=== PATIENT | male | born 2000 | race Caucasian/White ===

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

== ENCOUNTER 2022-05-25 13:52 | Emergency (ER) | payer MEDICAID, SELFPAY ==
[2022-05-25 14:07] VITALS: BP 137/74; PULSE 64; RESP 16; TEMP 36.7; O2SAT 99
--- NOTE | 2022-05-25 14:30 | W.ED.GENAD ---
Discharge Plan Disposition Patient Disposition: HOME Condition: Stable Discharge Details Clinical Impression: Pain, dental Primary Care Provider: Tracy,Local ED Provider: Camila Perdomo Home Meds and New Rx's Prescriptions: New penicillin V potassium 500 mg tablet 500 mg PO Q6H 10 Days Qty: 40 0RF Discharge Instructions Instructions: Toothache (ED) Additional Instructions: soft diet motrin/tylenol for pain antibiotic as precribed yogurt daily while on antibiotics return earlier with new or worsening complaints Referrals: Gary Bradley [ [facility] STAFF PHYSICIAN] - Discharge Data Discharge Date/Time-TO BE ENTERED AT DEPARTURE: 05/25/22 14:41 Medical Decision Making Referral to dentist Placed on antibiotic Ibuprofen and Tylenol for pain control No evidence of Ludwigs angina return precautions discussed and pt expressed understanding Medical Records Medical records reviewed: Yes I reviewed the patient's medical records. Lab Data Lab results reviewed: Yes I reviewed the patient's lab results. HPI General Date/Time Provider Initiated Documentation: 05/25/22 14:12. HPI Narrative: Otherwise healthy presents with this 21-year-old male who is otherwise healthy presents with right upper dental pain for the past several months. He states he fractured it several months ago. He denies any fever or chills. He states it is exacerbated with chewing. He states it radiates into his ear. He denies any drainage. Patient states he presents today secondary to his partner delivering upstairs with him being concerned about his health. He denies any difficulty swallowing or chest discomfort. Denies any headaches. He has not been on an antibiotic Related Data Home Medications Medication Instructions Recorded Confirmed penicillin V potassium 500 mg 500 mg PO Q6H 10 days #40 tabs 05/25/22 tablet Previous Rx's Medication Instructions Recorded penicillin V potassium 500 mg 500 mg PO Q6H 10 days #40 tabs 05/25/22 tablet Allergies Allergy/AdvReac Type Severity Reaction Status Date / Time No Known Allergies Allergy Unverified 05/25/22 14:10 General Stated Complaint: DentalOral PAPITO: 3 Review of Systems Narrative: Review of systems obtained x3 and negative aside from indication in the HPI PFSH All Active Problems (Updated 05/25/22 @ 14:35 by JESÚS Tan) Pain, dental (Acute) Social History Smoking/Tobacco Use Status: Current every day Tobacco Type: cigarettes Smoking risk assessment performed?: Yes Alcohol Intake: former Drug use: Daily Substance use type: marijuana Do you feel safe at home: Yes Do you feel safe in your relationship?: Yes Exam Const General: cooperative, comfortable and no acute distress [facility] Teeth image: 1. Fracture to, no evidence of deep space infection, no trismus No soft palate induration or evidence of Bharat's angina Course Vital Signs Vital signs: Vital Signs Temperature 36.7 C 05/25/22 14:07 Pulse 64 05/25/22 14:07 Respiratory Rate 16 05/25/22 14:07 Blood Pressure 137/74 05/25/22 14:07 Pulse Oximetry 99 05/25/22 14:07 Temperature 36.7 C 05/25/22 14:07 Temperature Source Temporal Artery Scan 05/25/22 14:07 Pulse 64 05/25/22 14:07 Respiratory Rate 16 05/25/22 14:07 Respiratory Effort 05/25/22 14:07 Blood Pressure 137/74 05/25/22 14:07 Blood Pressure Position Sitting 05/25/22 14:07 Pulse Oximetry 99 05/25/22 14:07 Oxygen Delivery Method Room Air 05/25/22 14:07 Oxygen Flow Rate 0 05/25/22 14:07 Pain Level 7 05/25/22 14:11
--- NOTE | 2022-05-25 17:16 | NUR.NOTE ---
Referral made per Camila ely to establish care with a PCP when avail as the patient just moved back to the area. Put the referral in the day care center director's box for assistance. Nursing Note:
--- NOTE | 2022-05-26 10:39 | CMACTNOTE_ITS ---
- If Service Date Differs Date of service: 05/26/22 Time of Service: 10:39 Care Management Activity Note Everett is seen in the ED for dental pain. ED provider asks that CM assist Everett in establishing care with a local PCP. A review of his chart reveals that Gary Bradley MD is listed as his PCP. A phone call to the [place] office of [facility] reveals that Everett is no longer an active patient at their health center as he transferred his care out of the area in 2019. CM tele phones Everett to inquire if he would rather reestablish at [facility] or the [facility]. Per Everett's request, KELLY coordinates a referral to Caroline Iqbal MD, of [facility], on-call provider, to assist Everett in establishing care. KELLY also advises Everett that [facility] is currently accepting new patients and directs him to call them to obtain new patient paperwork. Everett has [place] Medicaid for insurance.
== END 2022-05-25 14:41 | disposition home or self-care (01) ==
PROVIDERS: Emergency Provider Physician Assistant
DX: K08.89 Other specified disorders of teeth and supporting structures (principal); F17.210 Nicotine dependence, cigarettes, uncomplicated
CPT/HCPCS: 99283

== ENCOUNTER 2022-08-04 20:04 | Outpatient (REF) | payer MEDICAID, SELFPAY ==
[2022-08-04 15:37] LABS: HCT 45.2 % (40.0-50.0); HGB 15.3 g/dL (13.5-17.5); MCH 31.8 pg (27.0-33.0); MCHC 33.8 % (32.0-36.0); MCV 94 fL (80-95); MPV 11.1 fL (8.0-11.0); Platelet Count 214 10^3/uL (130-400); RBC 4.81 10^6/uL (4.36-5.78); RDW 11.9 % (11.8-14.1); RDW-SD 41.1 fL; WBC 7.94 10^3/uL (4.4-10.8)
[2022-08-04 15:58] LABS: FREE T4 1.22 ng/dL (0.76-1.46); TSH 1.43 uIU/mL (0.36-3.74)
[2022-08-05 05:19] LABS: Vitamin D 25 Total 29.9 ng/mL (30-100)
== END 2022-08-04 20:05 | disposition home or self-care (01) ==
LOC: NCHCN 20:04
PROVIDERS: Visit Provider Nurse Practitioner Family
DX: F41.8 Other specified anxiety disorders (principal)
CPT/HCPCS: 82306; 85027; 84439; 84443

== ENCOUNTER 2022-08-26 18:05 | Emergency (ER) | payer MEDICAID, SELFPAY ==
[2022-08-26 18:09] VITALS: BP 125/71; PULSE 75; RESP 20; TEMP 36.7; O2SAT 99
--- NOTE | 2022-08-26 18:21 | W.ED.GENAD ---
Discharge Plan Disposition Patient Disposition: HOME Condition: Good Discharge Details Clinical Impression: Pain due to dental caries Primary Care Provider: Unknown,Unknown ED Provider: Aron Mcdonnell Discharge Instructions Instructions: Dental Caries (ED) Additional Instructions: At this time there is no evidence of dental abscess or infection. Please continue to monitor symptoms and if you develop significant facial swelling, swelling in your mouth, fever chills, or difficulty breathing or swallowing return immediately to the emergency department for reassessment. Otherwise it is recommended that you take 600 mg of ibuprofen with 650 or thousand of acetaminophen every 6 hours as needed for pain. You may also use [id number] dental oral gel for discomfort as well. Just take as directed on packaging. Otherwise it is very important that you follow-up with dental provider for reassessment and definitive care of your complaints. Referrals: [facility] [Provider Group] Discharge Data Discharge Date/Time-TO BE ENTERED AT DEPARTURE: 08/26/22 18:35 Medical Decision Making Patient presenting to the emergency department for chief complaint of right upper molar dental pain. He states this is been intermittent for a year but constant over the last 2 days. He denies any injury or trauma, fractured tooth, swelling to the face, fever chills, or other symptoms. Exam consistent with dental dipak without infection.. no signs of deep neck space infection ( Retropharyngeal abscess, Jarett's angina, Parapharyngeal space infection, Peritonsillar Abscess ([employer])) or Epiglottitis. Pt non toxic and stable. Do not feel that patient needs antibiotics at this time but will recommend NSAIDs and follow-up with dental. He states that he does have dental appointment scheduled for the . Patient given IM Toradol and discussed [id number] medications he may utilize for pain control while continuing to monitor symptoms. After discussion of diagnosis and plan of care patient has no further needs, questions, or concerns and states clear understanding to return to the emergency department for any worsening symptoms. This documentation was generated using [employer] system, please disregard any oddities of phrase or misspellings. HPI General Mode of arrival: ambulatory. Date/Time Provider Initiated Documentation: 08/26/22 18:13. Limitations to Documentation: no limitations. Information obtained by: patient. History of Present Illness 21 year old M presents to the emergency department with the chief complaint of Dental pain, described as moderate, with intensity rated at 7. Quality is described as sharp, and is localized to the mouth. Patient reports no radiation. Patient started experiencing this day(s) (2) and it has been constant and intermittent (for years). No relieving factors improve symptom(s), No exacerbating factors reported . Patient notes no other symptoms.. Patient did receive the following treatments prior to arrival, NSAID Related Data Allergies Allergy/AdvReac Type Severity Reaction Status Date / Time No Known Allergies Allergy Unverified 05/25/22 14:10 General Stated Complaint: DentalOral PAPITO: 4 Review of Systems Constitutional Constitutional: Denies chills and Denies fever(s) ENT Ears, Nose, Mouth, and Throat: Reports as per HPI, Denies change in voice, Reports dental pain, Denies dysphagia, Denies throat swelling and Denies tongue swelling Cardiovascular Cardiovascular: Denies chest pain and Denies dyspnea Respiratory Respiratory: Denies dyspnea, Denies stridor and Denies wheezing Gastrointestinal Gastrointestinal: Denies abdominal pain, Denies dysphagia, Denies nausea and Denies vomiting Integumentary/Breasts Skin/Breast: Denies rash Allergic/Immunologic Allergic/Immunologic: Denies throat swelling, Denies tongue swelling and Denies wheezing PFSH All Active Problems (Updated 08/26/22 @ 18:27 by Aron Mcdonnell NP) Pain due to dental caries (Acute) Social History Smoking/Tobacco Use Status: Current every day Tobacco Type: cigarettes Smoking risk assessment performed?: Yes Alcohol Intake: former Drug use: Daily Substance use type: marijuana Do you feel safe at home: Yes Do you feel safe in your relationship?: Yes Exam Const General: cooperative Orientation: alert, awake and oriented x3 Limitations: mental status not altered [facility] Head: normal to inspection, normocephalic and atraumatic Ears: hearing grossly normal bilaterally, normal mastoids bilaterally and no periauricular adenopathy General nose exam: external nose normal Face and sinus: normal facial exam Mouth: oropharynx normal, no drooling, no muffled voice, normal tongue and no trismus Teeth and gingiva: caries (Noted to Tooth #2 with tenderness to tooth) Throat: posterior oropharynx normal, tonsils normal and uvula midline Eyes General: appearance normal, both eyes and all related structures Pupils: PERRL Neck Neck: normal visual inspection, full ROM, no lymphadenopathy, no meningeal signs, trachea midline, supple, no anterior neck swelling and no midline deformity Resp Effort & Inspection: normal respiratory effort and able to speak in complete sentences Auscultation: clear to auscultation bilaterally Cardio Rate: regular rate Rhythm: regular rhythm Heart Sounds: S1 normal and S2 normal Course Vital Signs Vital signs: Vital Signs Temperature 36.7 C 08/26/22 18:09 Pulse 75 08/26/22 18:09 Respiratory Rate 20 08/26/22 18:09 Blood Pressure 125/71 08/26/22 18:09 Pulse Oximetry 99 08/26/22 18:09 Temperature 36.7 C 08/26/22 18:09 Temperature Source Skin 08/26/22 18:09 Pulse 75 08/26/22 18:09 Respiratory Rate 20 08/26/22 18:09 Blood Pressure 125/71 08/26/22 18:09 Blood Pressure Position Sitting 08/26/22 18:09 Pulse Oximetry 99 08/26/22 18:09 Oxygen Delivery Method Room Air 08/26/22 18:09 Oxygen Flow Rate 0 08/26/22 18:09
[2022-08-26] MEDS: Ketorolac 30 MG/ML VIAL IM (18:28)
== END 2022-08-26 18:35 | disposition home or self-care (01) ==
PROVIDERS: Emergency Provider Nurse Practitioner Family
DX: K02.9 Dental caries, unspecified (principal); F17.210 Nicotine dependence, cigarettes, uncomplicated
CPT/HCPCS: 96372; 99284; J1885

== ENCOUNTER 2023-06-29 15:08 | Emergency (ER) | payer SELFPAY ==
[2023-06-29 15:14] VITALS: BP 119/75; PULSE 64; RESP 18; TEMP 36.7; O2SAT 99
--- NOTE | 2023-06-29 15:30 | W.ED.GENAD ---
Discharge Plan Disposition Patient Disposition: Home Condition: Good Discharge Details Clinical Impression: Pain, dental Primary Care Provider: Unknown,Unknown ED Provider: Balbir Amaya Home Meds and New Rx's Prescriptions: New penicillin V potassium 500 mg tablet 500 mg PO QID 10 Days Qty: 40 0RF Discharge Instructions Instructions: Toothache (ED) Additional Instructions: The block we administered should help improve your pain. Please take 800 mg of ibuprofen every 6 hours and 1000 mg of Tylenol every 6 hours to help with the inflammation and pain. These are the maximum doses. Please take the antibiotic as directed to help with the infection in your tooth. Please use the dental list that we have provided to contact the dentist for prompt follow-up and evaluation for tooth removal. If you notice any worsening of your symptoms, or any new symptoms such as difficulty swallowing, difficulty breathing, vomiting, diarrhea, fever, chills, shortness of breath, chest pain, numbness, weakness, or fainting , please return immediately to the emergency department for reevaluation. Please follow up with your primary care provider as soon as possible for reassessment and reevaluation. As always, it was a pleasure participating in your medical care today. Medical Decision Making Pleasant 22-year-old male who presents today for dental pain in the right upper molar. He states that he had his molar break off about 1 to 2 months ago, and pain began about 2 days ago. It is notably achy. Slightly improved with Motrin. He denies any numbness or tingling. No difficulty drinking or swallowing. No swelling. No other complaints at this time here. He has not followed up with a dentist yet. Pain is made worse with chewing. M demonstrates fractured right upper posterior molar. No evidence of periapical abscess Jarett's angina or other abnormalities to suggest airway compromise. Will start the patient on penicillin, discussed risks and benefits of dental block. Patient elects for dental block. Block was performed with good success. Patient tolerated well. Will discharge with antibiotics for home use, I have extensively reviewed the treatment plan and discharge instructions with the patient. I have addressed all patient concerns at this time. The patient was made aware of what symptoms to monitor for that would warrant a return to the emergency department. Discussed the plan with the patient, they demonstrate verbal understanding and agreement with our assessment and plan at this time. The documentation in this chart was dictated using [employer] dictation software. Please excuse any dictation errors. HPI General Date/Time Provider Initiated Documentation: 06/29/23 15:16. HPI Narrative: Pleasant 22-year-old male who presents today for dental pain in the right upper molar. He states that he had his molar break off about 1 to 2 months ago, and pain began about 2 days ago. It is notably achy. Slightly improved with Motrin. He denies any numbness or tingling. No difficulty drinking or swallowing. No swelling. No other complaints at this time here. He has not followed up with a dentist yet. Pain is made worse with chewing. Related Data Home Medications Medication Instructions Recorded Confirmed penicillin V potassium 500 mg 500 mg PO QID 10 days #40 tabs 06/29/23 tablet Previous Rx's Medication Instructions Recorded penicillin V potassium 500 mg 500 mg PO QID 10 days #40 tabs 06/29/23 tablet Allergies Allergy/AdvReac Type Severity Reaction Status Date / Time No Known Allergies Allergy Unverified 06/29/23 15:15 General Stated Complaint: DentalOral PAPITO: 4 Review of Systems All systems reviewed & are unremarkable except as noted in HPI and below PFSH All Active Problems (Updated 06/29/23 @ 15:33 by Balbir Amaya DO) Pain, dental (Acute) Social History Smoking/Tobacco Use Status: Current every day Tobacco Type: cigarettes Smoking risk assessment performed?: Yes Alcohol Intake: former Drug use: Daily Substance use type: marijuana Do you feel safe at home: Yes Do you feel safe in your relationship?: Yes Exam Narrative Exam Narrative: 1.Const: Well-nourished, Well-developed, appearing stated age 2.Eyes: PERRL, no conjunctival injection, and symmetrical lids. 3.ENT: Atraumatic external nose and ears. Moist MM. Neck: Symmetric, trachea midline, No thyromegaly. Dental caries throughout. Fractured posterior right upper molar is noted. No periapical abscess. No swelling, no evidence of Jarett's angina. No evidence of airway compromise 4.CVS: +S1/S2, No murmurs or gallops. Peripheral pulses 2+ and equal in all extremities. Brisk capillary refill in all extremities. 5.RESP: Unlabored respiratory effort. Clear to auscultation bilaterally. No wheezes rales or rhonchi 6.GI: Soft, Nontender/Nondistended, No hepatosplenomegaly. No guarding or rebound. 7.MSK: Normocephalic/Atraumatic, Extremities w/o deformity or ttp No cyanosis or clubbing, Normal movement of all extremities 8.Skin: Warm, Dry. No rashes or lesions. 9.Neuro: ict programmer II-XII grossly intact. Sensation grossly intact, no focal neurologic deficits. 10.Psych: (AAO) x3. Appropriate mood and affect Course Vital Signs Vital signs: Vital Signs Temperature 36.7 C 06/29/23 15:14 Pulse 64 06/29/23 15:14 Respiratory Rate 18 06/29/23 15:14 Blood Pressure 119/75 06/29/23 15:14 Pulse Oximetry 99 06/29/23 15:14 Temperature 36.7 C 06/29/23 15:14 Temperature Source Skin 06/29/23 15:14 Pulse 64 06/29/23 15:14 Respiratory Rate 18 06/29/23 15:14 Respiratory Effort Normal, Non-Labored 06/29/23 15:15 Blood Pressure 119/75 06/29/23 15:14 Blood Pressure Position Sitting 06/29/23 15:14 Pulse Oximetry 99 06/29/23 15:14 Oxygen Delivery Method Room Air 06/29/23 15:14 Oxygen Flow Rate 0 06/29/23 15:14 Pain Level 10 06/29/23 15:14 Procedures Nerve Block Nerve Block 1: Time out performed: Yes Local Anesthetic: Bupivicaine 0.25% Amount of anesthesia used (mL): 5 Side: right Intraoral Nerve Block: superior alveolar Procedure Successful: Yes Patient Tolerated Procedure: well and no complications Complications: none PAWSS Have you Been Recently Intoxicated or Drunk Within the Last 30 days?: No Have you Ever Experienced Previous Episodes of Alcohol Withdrawal?: No Have you ever Experienced Withdrawal Seizures?: No Have you ever Experienced Delirium Tremens(DT)s?: No Have you ever undergone Alcohol Rehabilitation Treatment (i.e, inpt ot outpatient treatment programs)?: No Have you ever Experienced Blackouts?: No Have you ever Combined Alcohol with other Downers within the last 90 days?: No Have you ever Combined Alcohol with any other Substance of Abuse during the last 90 days?: No Positive Blood Alcohol level on Presentation? [PCS.BAL]: No Evidence of Increased Autonomic Activity (i.e. HR>120, tremor, sweating, agitation, nausea)?: No Result: 0
[2023-06-29] MEDS: Penicillin V POTASSIUM 500 MG TAB, 4 TABS/BTL PO (15:38)
[2023-06-29 15:39] VITALS: PULSE 85; O2SAT 99
== END 2023-06-29 15:42 | disposition home or self-care (01) ==
PROVIDERS: Emergency Provider Student in an Organized Health Care Education/Training Program
DX: K08.89 Other specified disorders of teeth and supporting structures (principal)
CPT/HCPCS: 64400

== ENCOUNTER 2023-07-18 11:20 | Emergency (ER) | payer SELFPAY ==
[2023-07-18 11:24] VITALS: BP 127/69; PULSE 75; RESP 14; TEMP 36.5; O2SAT 99
--- NOTE | 2023-07-18 11:35 | W.ED.GENAD ---
Discharge Plan Disposition Patient Disposition: Home Discharge Details Clinical Impression: Head injury due to trauma, Cervical muscle strain Primary Care Provider: None,None ED Provider: Aron Mcdonnell Home Meds and New Rx's Prescriptions: New ketorolac 10 mg tablet 10 mg PO TID 5 Days Qty: 15 0RF cyclobenzaprine 5 mg tablet 5 - 10 mg PO TID PRN (Reason: muscle spasm) Qty: 20 0RF Discharge Instructions Instructions: Cervical Strain (ED), Head Injury (ED) Additional Instructions: With the prescribed ketorolac please do not take any further NSAIDs which include Aleve, Advil, Motrin, ibuprofen, or aspirin as this may cause complications or side effects due to interaction. Please use caution with use of the muscle relaxer as this may make you sedated for slightly altered it is not recommended to drive or use machinery or dangerous equipment. You may perform activities as tolerated. feel free to return for new or worsening symptoms otherwise follow-up your primary care provider for recheck if not improving in the next 1 to 2 weeks Stand Alone Forms: Work Release Referrals: Primary Care Provider [Outside] Discharge Data Discharge Date/Time-TO BE ENTERED AT DEPARTURE: 07/18/23 11:48 Medical Decision Making Patient presenting to the emergency department for chief complaint of head injury. Patient reports that he stood up striking his head against a pallet yosvany. He denies any syncope, loss of consciousness, vomiting, focal neurological findings. Patient has felt general malaise, mild nausea on the way he struck his head but has further resolved, and a slight headache since but also having some neck discomfort. Physical exam is unremarkable and shows no signs of acute neurological deficit, no wounds hematoma or ecchymosis noted, mild soft tissue tenderness to the paraspinal tissue of the cervical spine. I do not feel that patient needs advanced imaging. We will treat patient's symptoms conservatively and will have patient follow-up with primary care return for new or worsening symptoms. After discussion of diagnosis and plan of care patient has no further needs, questions, or concerns and states clear understanding to return to the emergency department for any worsening symptoms. This documentation was generated using [employer] system, please disregard any oddities of phrase or misspellings. HPI General Mode of arrival: ambulatory. Date/Time Provider Initiated Documentation: 07/18/23 11:33. Limitations to Documentation: no limitations. Information obtained by: patient and RN notes reviewed. History of Present Illness 22 year old M presents to the emergency department with the chief complaint of Head and neck pain, described as moderate, and is localized to the head and neck. Patient started experiencing this week(s) (1) and it has been constant. Rest improves symptom(s), Movement worsens symptoms . Patient did receive the following treatments prior to arrival, NSAID Related Data Home Medications Medication Instructions Recorded Confirmed cyclobenzaprine 5 mg tablet 5 - 10 mg PO TID PRN muscle spasm 07/18/23 #20 tabs ketorolac 10 mg tablet 10 mg PO TID 5 days #15 tabs 07/18/23 Previous Rx's Medication Instructions Recorded cyclobenzaprine 5 mg tablet 5 - 10 mg PO TID PRN muscle spasm 07/18/23 #20 tabs ketorolac 10 mg tablet 10 mg PO TID 5 days #15 tabs 07/18/23 Allergies Allergy/AdvReac Type Severity Reaction Status Date / Time No Known Allergies Allergy Unverified 07/18/23 11:33 General Stated Complaint: HeadInjury PAPITO: 4 Review of Systems Constitutional Constitutional: Denies chills, Denies fever(s), Reports headache(s), Reports malaise and Denies weakness Eyes Eyes: Denies change in vision and Denies loss of vision ENT Ears, Nose, Mouth, and Throat: Reports headache(s) and Reports neck pain Cardiovascular Cardiovascular: Denies chest pain, Denies syncope and Denies dyspnea Respiratory Respiratory: Denies dyspnea Gastrointestinal Gastrointestinal: Reports nausea and Denies vomiting Musculoskeletal Musculoskeletal: Denies back pain, Denies muscle weakness and Reports neck pain Integumentary/Breasts Skin/Breast: Denies wounds Neurologic Neurologic: Reports as per HPI, Denies syncope, Reports headache(s), Denies lack of coordination, Denies localized weakness, Denies loss of vision, Denies memory loss, Denies seizure-like activity, Denies sensory deficit, Denies paresthesias and Denies weakness Psychiatric Psychiatric: Denies memory loss PFSH All Active Problems Pain, dental (Acute) Head injury due to trauma (Acute) Cervical muscle strain (Acute) Social History Smoking/Tobacco Use Status: Current every day Tobacco Type: cigarettes Smoking risk assessment performed?: Yes Alcohol Intake: former Drug use: Daily Substance use type: marijuana Do you feel safe at home: Yes Do you feel safe in your relationship?: Yes Exam Const General: cooperative, healthy appearing, no acute distress and well groomed Orientation: alert, awake and oriented x3 HENMT Head: normal to inspection Ears: hearing grossly normal bilaterally and TM's normal bilaterally Mouth: oral mucosae normal and moist mucous membranes Throat: posterior oropharynx normal Eyes Visual Tapia: normal visual tapia by confrontation Alignment and Position: alignment normal Periorbital: periorbital findings normal Eyelids: eyelids normal Sclera: sclerae normal Cornea: corneas normal Pupils: PERRL EOM: EOM intact bilaterally Neck Neck: normal visual inspection, full ROM and no meningeal signs Resp Effort & Inspection: normal respiratory effort and able to speak in complete sentences Auscultation: clear to auscultation bilaterally Cardio Rate: regular rate Rhythm: regular rhythm Heart Sounds: S1 normal and S2 normal Back/Spine/Pelvis Cervical Spine: normal cervical lordosis, cervical ROM normal, cervical muscular tenderness, No pain with cervical ROM and No cervical spinal tenderness Neuro General: patient alert, patient awake, patient oriented x3, gait normal, tone normal, moves all extremities, CN's II-XI intact bilaterally and not confused Cognition: normal cognition Speech: speech normal Motor: muscle tone normal throughout, strength 5/5 throughout, no pronator drift, no movement abnormalities noted and no fasciculations Sensory Exam: no sensory deficits noted Coordination: [id number] test normal, Romberg test normal, Does not sway with eyes open, rapid alternating movement UE normal and rapid alternating movement LE normal Course Vital Signs Vital signs: Vital Signs Temperature 36.5 C 07/18/23 11:24 Pulse 75 07/18/23 11:24 Respiratory Rate 14 07/18/23 11:24 Blood Pressure 127/69 07/18/23 11:24 Pulse Oximetry 99 07/18/23 11:24 Temperature 36.5 C 07/18/23 11:24 Temperature Source Skin 07/18/23 11:24 Pulse 75 07/18/23 11:24 Respiratory Rate 14 07/18/23 11:24 Respiratory Effort Normal 07/18/23 11:34 Blood Pressure 127/69 07/18/23 11:24 Blood Pressure Position Sitting 07/18/23 11:24 Pulse Oximetry 99 07/18/23 11:24 Oxygen Delivery Method Room Air 07/18/23 11:24 Oxygen Flow Rate 0 07/18/23 11:24 Pain Level 5 07/18/23 11:24 Comment has been taking ibuprofen without relief 07/18/23 11:24
[2023-07-18] MEDS: Ketorolac 15 MG/ML VIAL IM (11:37)
== END 2023-07-18 11:48 | disposition home or self-care (01) ==
PROVIDERS: Emergency Provider Nurse Practitioner Family
DX: S16.1XXA Strain of muscle, fascia and tendon at neck level, initial encounter (principal); S09.90XA Unspecified injury of head, initial encounter; X58.XXXA Exposure to other specified factors, initial encounter
CPT/HCPCS: 96372; 99284; J1885

== ENCOUNTER 2025-08-22 08:55 | Emergency (ER) | payer SELFPAY ==
[2025-08-22] VITALS (16 sets, daily range): BP systolic 99–129; BP diastolic 53–78; PULSE 54–88; RESP 16–18; TEMP 36.6; O2SAT 98–100
--- NOTE | 2025-08-22 09:00 | DI.CT_ITS ---
Exam(s) CT ABDOMEN PELVIS W EXAM: CT ABDOMEN PELVIS W CLINICAL HISTORY: periumbilical pain. TECHNIQUE: Imaging Protocol: Axial computed tomography images with coronal and sagittal reformatted images were created and reviewed CONTRAST MATERIAL: Intravenous: Omnipaque-350 100cc Oral: None COMPARISON: No exams were available for comparison FINDINGS: VISUALIZED LUNG BASES: No nodules nor pleural effusions evident. ABDOMEN: There is no ascites. LIVER: There are no focal hepatic lesions evident. No dilated intrahepatic ducts. GALLBLADDER/BILIARY: No obvious gallbladder pathology. CBD is not dilated. PANCREAS: No evidence of pancreatic mass nor dilatation of the pancreatic duct. SPLEEN: Spleen is not enlarged. No obvious intrasplenic lesions. Splenic and portal veins are patent. ADRENALS: There are no significant adrenal masses. KIDNEYS:No cysts evident. No solid renal masses. No calculi nor hydronephrosis.. ABDOMINAL AORTA: Abdominal aorta is not enlarged. LYMPH NODES:There is no retroperitoneal nor paraaortic adenopathy. ABDOMINAL WALL: No evidence of significant anterior abdominal wall nor inguinal hernia. GI: There is no evidence of bowel obstruction, free air, nor abscess. Transverse colon is collapsed. PELVIS: GI: No evidence of appendicitis. Appendix diameter 6 mm. No periappendiceal streaking. However,there is some streaking in fat density adjacent to sigmoid colon just above the urinary bladder. This has the appearance of probable epiploic appendagitis. LYMPH NODES: There is no intrapelvic nor inguinal adenopathy. REPRODUCTIVE: Prostate size normal. Seminal vesicles appear unremarkable. URINARY BLADDER: No calculi nor obvious masses evident OSSEOUS: No fractures and no significant osseous lesions. IMPRESSION: 1. Findings at the level the sigmoid above the urinary bladder having the appearance of probable epiploic appendagitis. Surgical consultation recommended Report called by myself to ER on 08/22/2023 at 12:00 Noon RADIATION DOSE DELIVERED: 343.39mGy.cm Total DLP DATA REPOSITORY: All CT scans at this facility are submitted to the National Radiology Data Registry (NRDR) Dose Index Registry (DIR) with the [employer] (ACR). RADIATION OPTIMIZATION: All CT scans at this facility use at least one of these dose optimization techniques: automated exposure control; mA and/or kV adjustment per patient size (includes targeted exams where dose is matched to clinical indication); or iterative reconstruction.
[2025-08-22 09:54] LABS: Abs Immature Grans 0.04 10^3/uL (0.0-0.06); HCT 43.9 % (40.0-50.0); HGB 14.7 g/dL (13.5-17.5); Immature Grans % 0.6 %; MCH 31.3 pg (27.0-33.0); MCHC 33.5 % (32.0-36.0); MCV 94 fL (80-95); MPV 10.7 fL (8.0-11.0); Platelet Count 197 10^3/uL (130-400); RBC 4.69 10^6/uL (4.36-5.78); RDW 11.9 % (11.8-14.1); RDW-SD 41.3 fL; WBC 6.87 10^3/uL (4.4-10.8)
[2025-08-22] MEDS: Normal Saline 1,000 ML 1000 ML IV (10:26)
[2025-08-22] MEDS: Prochlorperazine 10 MG/2 ML VIAL IVP (10:27)
[2025-08-22] MEDS: ACETAMINOPHEN 500 MG/50 ML BAG 200 MG IVPB (10:27)
[2025-08-22] MEDS: Normal Saline 50 ML (10:28)
[2025-08-22 10:42] LABS: ALT 19 U/L (16-63); AST 14 U/L (15-37); Albumin 3.9 g/dL (3.4-5.0); Alkaline Phosphatase 83 U/L (46-116); Anion Gap 8.7 mmol/L (3-11); BUN 11 mg/dL (7-18); Bilirubin, Total 0.3 mg/dL (0.2-1.0); CO2 28.3 mmol/L (21.0-32.0); Calcium 8.9 mg/dL (8.5-10.1); Chloride 107 mmol/L (98-107); Estimated GFR 123.07 (mL/min/1.73m2); Glucose 100 mg/dL (74-106); Lipase 30 U/L (<78); Potassium 4.2 mmol/L (3.5-5.1); Sodium 144 mmol/L (136-145); Total Protein 7.2 g/dL (6.4-8.2)
[2025-08-22] MEDS: Normal Saline - Diluent 50 ML VIAL IJ (10:52)
[2025-08-22] MEDS: Normal Saline Flush 10 ML SYR IVP (10:53)
[2025-08-22] MEDS: diphenhydrAMINE 50 MG/ML VIAL 25 MG IVP (10:58)
[2025-08-22] MEDS: Omnipaque 350 MG/ML 500 ML BTL-Imaging package IJ (11:11)
[2025-08-22 12:13] LABS: Glucose Negative (Negative)
[2025-08-22] MEDS: Ketorolac 15 MG/ML VIAL 7.5 MG IVP (12:32)
--- NOTE | 2025-08-23 17:14 | ED.GENADUL_ITS ---
Discharge Plan Disposition Patient Disposition: Home Discharge Details Clinical Impression: Epiploic appendagitis Primary Care Provider: None,None ED Provider: Camila Perdomo Home Meds and New Rx's Prescriptions: Continued cyclobenzaprine 5 mg tablet 5 - 10 mg PO TID PRN (Reason: muscle spasm) Qty: 20 0RF Discharge Instructions Additional Instructions: Take Motrin 600 mg every 8 hours with food Take Tylenol 500 mg every 4 hours while awake as needed for pain, do not exceed 3 g daily You may use hot water bottle and warm compresses Please follow-up with your primary care physician on Tuesday for reassessment and return earlier should you have new or worsening complaints This finding on your CAT scan is self-limited and will likely improve with nonsteroidal anti-inflammatory such as ibuprofen/Motrin which is [id number] Stand Alone Forms: Work Release Discharge Data Discharge Date/Time-TO BE ENTERED AT DEPARTURE: 08/22/25 12:50 HPI General Date/Time Provider Initiated Documentation: 08/22/25 08:57 . HPI Narrative: This 24-year-old male presents with report of abdominal pain around his umbilicus for the past 3 days. Denies any nausea or vomiting. Denies history of similar symptoms in the past denies any urinary complaints. Related Data Home Medications ?Medication ?Instructions ?Recorded ?Confirmed cyclobenzaprine 5 mg tablet 5 - 10 mg (1 - 2 x 5 mg) P O TID 07/18/23 08/22/25 PRN muscle spasm #20 tabs Previous Rx's ?Medication ?Instructions ?Recorded cyclobenzaprine 5 mg tablet 5 - 10 mg (1 - 2 x 5 mg) P O TID 07/18/23 PRN muscle spasm #20 tabs Allergies Allergy/AdvReac Type Severity Reaction Status Date / Time No Known Allergies Allergy Unverified 08/22/25 09:03 General Stated Complaint: Abd Prob PAPITO: 3 Exam Narrative Exam Narrative: Alert and oriented 24-year-old male no acute distress, tenderness to palpation in the periumbilical region, no peritonitis no CVA tenderness Course Vital Signs Vital signs: Vital Signs Temperature 36.6 C 08/22/25 08:59 Pulse 72 08/22/25 08:59 Respiratory Rate 18 08/22/25 08:59 Blood Pressure 129/77 08/22/25 08:59 Pulse Oximetry 98 08/22/25 08:59 Temperature 36.6 C 08/22/25 09:04 Temperature Source Oral 08/22/25 09:04 Pulse 54 L 08/22/25 12:40 Respiratory Rate 16 08/22/25 12:40 Blood Pressure 120/78 08/22/25 12:40 Blood Pressure Mean 79 08/22/25 11:54 Pulse Oximetry 99 08/22/25 12:40 Lab/Test Results Lab/Test Results: Laboratory Tests Range/Units 08/22/25 08/22/25 08/22/25 09:42 10:20 11:55 WBC (4.4-10.8) 10^3/uL 6.87 RBC (4.36-5.78) 10^6/uL 4.69 Hgb (13.5-17.5) g/dL 14.7 Hct (40.0-50.0) % 43.9 MCV (80-95) fL 94 MCH (27.0-33.0) pg 31.3 MCHC (32.0-36.0) % 33.5 RDW (11.8-14.1) % 11.9 Plt Count (130-400) 10^3/uL 197 MPV (8.0-11.0) fL 10.7 Immature Gran % % 0.6 Neutrophils % % 61.3 Lymphocytes % % 25.9 Monocytes % % 6.4 Eosinophils % % 4.9 Basophils % % 0.9 Nucleated RBC % (0.0-0.3) % 0.0 Absolute Neutrophils (1.2-6.7) 10^3/uL 4.21 Absolute Lymphocytes (1.2-3.4) 10^3/uL 1.78 Absolute Monocytes (0.1-0.8) 10^3/uL 0.44 Absolute Eosinophils (0.0-0.7) 10^3/uL 0.34 Absolute Basophils (0.0-0.2) 10^3/uL 0.06 Sodium Cancelled 144 Potassium Cancelled 4.2 Chloride Cancelled 107 Carbon Dioxide Cancelled 28.3 Anion Gap Cancelled 8.7 BUN Cancelled 11 Creatinine Cancelled 0.9 Est GFR (CKD-EPI 2020) Cancelled 123.07 Glucose Cancelled 100 Calcium Cancelled 8.9 Total Bilirubin Cancelled 0.3 AST Cancelled 14 L ALT Cancelled 19 Alkaline Phosphatase Cancelled 83 Total Protein Cancelled 7.2 Albumin Cancelled 3.9 Lipase Cancelled 30 Urine Color (Yellow) Yellow Urine Clarity (Clear) Clear Urine pH (5-8) 7.5 Ur Specific [place] (1.005-1.025) 1.015 Urine Protein (Neg-Trace) mg/dL Negative Urine Ketones (Negative) mg/dL Negative Urine Blood (Negative) Negative Urine Nitrite (Negative) Negative Urine Bilirubin (Negative) Negative Urine Urobilinogen (Up to 0.2) mg/dL 0.2 Ur Leukocyte Esterase (Negative) Negative Urine Glucose (Negative) mg/dL Negative Medical Decision Making Results: Evidence of epiploic appendagitis, discussed with Dr. Franco, radiologist, CBC C, CMP, urinalysis without acute abnormality Assessment and plan: Patient with CT evidence of epiploic appendagitis in this patient with abdominal pain. Dr. Franco recommended that I speak with surgery and Dr. Wade states that Motrin, Tylenol, and time will resolve symptoms. Patient is otherwise in no acute distress. He was given 7.5 mg of Toradol. Dis charged home in stable condition with stable vitals return precautions reviewed and patient expressed understanding PFSH All Active Problems (Updated 08/22/25 @ 12:24 by JESÚS Tan) Epiploic appendagitis (Acute) Social History Smoking/Tobacco Use Status: Current every day Tobacco Type: cigarettes Smoking risk assessment performed?: Yes Alcohol Intake: former Drug use: Daily Substance use type: marijuana Do you feel safe at home: Yes Do you feel safe in your relationship?: Yes
== END 2025-08-22 12:50 | disposition home or self-care (01) ==
PROVIDERS: Emergency Provider Physician Assistant
DX: K63.89 Other specified diseases of intestine (principal)
CPT/HCPCS: 99285; 99284; 36415; 96374; 96375; 80053; 83690; 96361; 74177; 81003; 85025; J0131; J0780; J1200; J1885

== ENCOUNTER 2025-09-25 18:13 | Emergency (ER) | payer SELFPAY ==
[2025-09-25 18:14] VITALS: BP 122/79; PULSE 87; RESP 18; TEMP 36.6; O2SAT 95
--- NOTE | 2025-09-25 18:28 | W.ED.GENAD ---
Discharge Plan Disposition Patient Disposition: Home Condition: Stable Discharge Details Clinical Impression: Superficial burn of left hand Primary Care Provider: None,None ED Provider: Balbir Bach Home Meds and New Rx's Prescriptions: No Action No Known Home Meds Discharge Instructions Instructions: Minor [facility] Additional Instructions: You were seen in the emergency department for the minor steam burn of your left hand, this is a first-degree burn you should apply burn cream or Neosporin liberally to the hand, keep wrapped in bandages while at work, purchase an [id number] wrist/hand splint as needed to keep it still, at home you can use cold therapies as often as you want and take adequate dosing of Tylenol and ibuprofen for pain, please return for any signs of infection like increasing redness, fever, red streaking up the arm. Stand Alone Forms: Portal Information, Work Release Discharge Data Discharge Date/Time-TO BE ENTERED AT DEPARTURE: 09/25/25 18:52 HPI General Date/Time Provider Initiated Documentation: 09/25/25 18:28. HPI Narrative: 24 year-old male presents to ED today by POV/ambulating with his girlfriend with a chief complaint of steam burn to L hand - R hand dominant with onset tonight at work. Quality described as pain and slight limit to ROM of the hand, no radiation to eschar, blanched skin, open lesions, fever, lymphadenitis. Severity is described as moderate. Palliating factors include ran under cold water for significant amount of time. Provoking factors include nothing specific. Patient not anticoagulated. Related Data Home Medications Medication Instructions Recorded Confirmed Unknown [No Known Home Meds] 09/25/25 09/25/25 Allergies Allergy/AdvReac Type Severity Reaction Status Date / Time No Known Allergies Allergy Unverified 09/25/25 18:18 General Stated Complaint: Burn PAPITO: 3 Review of Systems All systems reviewed & are unremarkable except as noted in HPI and below Exam Narrative Exam Narrative: GENERAL APPEARANCE: Well-nourished, non-toxic, awake and alert, atraumatic, no acute distress. SKIN: Warm, pink, dry, mild pinkness to the left hand diffusely without any focal area of blanched or white skin, no eschar, no open lesions, range of motion is full with pain, no limit to flexion or extension of the fingers, left radial pulse 2+, sensation intact HEAD: Normocephalic, atraumatic, normal hair distribution for gender/age. EYES: Normal conjunctiva, no exudates on lids/lashes. ENT: Nares patent, no circumoral cyanosis, no facial swelling NECK: Supple, trachea midline, painless cervical ROM. LUNGS/CHEST: Non-labored respirations, normal A/P diameter, symmetrical expansion, no chest wall deformity HEART (CV/PV): Regular rate, no peripheral edema, no JVD. ABDOMEN: Soft, non-distended, no guarding. MSK: Normal ROM, no swelling/deformity to bilateral UEs or LEs, moving all extremities without weakness, no cyanosis, spine midline without tenderness, normal curvature. NEURO: Mental Status AAOx4 - alert to person, place, time, events No facial droop, no forehead involvement. Motor: No focal weakness - strength 5/5 in bilateral UEs and LEs, proximal and distal, symmetric. Sensory: sensation intact to light touch globally. Gait normal: patient ambulated without ataxia into ED room. PSYCH: euthymic, cooperative, pleasant, appropriate speech Course Vital Signs Vital signs: Vital Signs Temperature 36.6 C 09/25/25 18:14 Pulse 87 09/25/25 18:14 Respiratory Rate 18 09/25/25 18:14 Blood Pressure 122/79 09/25/25 18:14 Pulse Oximetry 95 09/25/25 18:14 Temperature 36.6 C 09/25/25 18:14 Temperature Source Tympanic 09/25/25 18:14 Pulse 87 09/25/25 18:14 Respiratory Rate 18 09/25/25 18:14 Blood Pressure 122/79 09/25/25 18:14 Pulse Oximetry 95 09/25/25 18:14 Oxygen Delivery Method Room Air 09/25/25 18:14 Oxygen Flow Rate 0 09/25/25 18:14 Pain Level 5 09/25/25 18:14 Medical Decision Making This dictation utilizes [id number] dictation software and may contain unedited grammatical errors. 24 year-old male presents to ED today by POV/ambulating with his girlfriend with a chief complaint of steam burn to L hand - R hand dominant with onset tonight at work. Quality described as pain and slight limit to ROM of the hand, no radiation to eschar, blanched skin, open lesions, fever, lymphadenitis. Severity is described as moderate. Palliating factors include ran under cold water for significant amount of time. Provoking factors include nothing specific. Patients' medical history: Negative, otherwise healthy. Family and social history: Noncontributory Works in a kitchen. Pertinent exam findings / vital signs include mild pinkness to the left hand diffusely without any focal area of blanched or white skin, no eschar, no open lesions, range of motion is full with pain, no limit to flexion or extension of the fingers, left radial pulse 2+, sensation intact. Differential / pathologies of concern include superficial burn. Diagnostic studies of: - None. Interventions of: - P.o. Tylenol and ibuprofen. ED Course/Assessment/Plan: 24-year-old male presents with superficial first-degree burn over the left hand from steam, there is no area of focal or severity with nonblanchable skin or whiteness or pallor, there is no eschar he is neurovascular intact in the hand, counseled on Tylenol and ibuprofen and applying [id number] antibiotic ointment to the hand, strict return criteria for any signs of infection. Findings not consistent with second or third-degree burn, neurovascular compromise. Disposition of superficial burn of left hand. Patient verbalized understanding of the plan and return to ED criteria and engaged in shared decision making. Medical Records Medical records reviewed: Yes I reviewed the patient's medical records. [facility] All Active Problems (Updated 09/25/25 @ 18:38 by JESÚS Feliz) Superficial burn of left hand (Acute) Social History Smoking/Tobacco Use Status: Current every day Tobacco Type: cigarettes Smoking risk assessment performed?: Yes Alcohol Intake: former Drug use: Daily Substance use type: marijuana Do you feel safe at home: Yes Do you feel safe in your relationship?: Yes
[2025-09-25] MEDS: Ibuprofen 400 MG TAB PO (18:51)
[2025-09-25] MEDS: Acetaminophen 500 MG TAB 1000 MG PO (18:51)
== END 2025-09-25 18:52 | disposition home or self-care (01) ==
LOC: ER 18:47
PROVIDERS: Emergency Provider Physician Assistant
DX: T23.102A Burn of first degree of left hand, unspecified site, initial encounter (principal); X12.XXXA Contact with other hot fluids, initial encounter; Y99.0 Civilian activity done for income or pay
CPT/HCPCS: 99283; 99282